=== PATIENT | female | born 1975 | race Two or more races ===

== ENCOUNTER 2022-02-17 12:28 | Inpatient (IN) | payer OTHER ==
[~2022-02-17] VITALS: Ht 152.4 cm; Wt 90.7 kg
--- NOTE | 2022-02-17 13:13 | NUR ---
PTE TRASLADA DE OTRA INTITUCION EL CUAL REFIERE CELULITIS EN LA RODILLA DERECHA PTE SE OBSERVA BAJANDO 0.9NSS Y VANCO 1GM SE PRESENTA PTE AL DR BARTON.
--- NOTE | 2022-02-17 13:50 | NUR ---
PTE CONSULTADO EN ESPERA DEL DR HECK
--- NOTE | 2022-02-17 14:26 | NUR ---
SE LE ORIENTA A PACIENTE SOBRE LAS ORDENES MEDICAS, REFIERE ENTEDER LAS MISMAS. SE LE ALEA LAS MUETRAS Y SE LE REALIZA LA PLACA DEMETRICE LAS ORDENES MEDICAS.
[2022-02-19] MEDS ORDERED: ALPRAZOLAM XR2 MG PO ×2 (13:28→13:31)
[2022-02-19] MEDS ORDERED: QUETIAPINE FUM100 MG PO (13:29)
[2022-02-19] MEDS ORDERED: RESTORIL30 MG PO (13:30)
== END 2022-02-24 15:34 | disposition home or self-care (01) | DRG 549 ==
LOC: ER 12:28 → SEC-K 17:50 → SURH 17:50
PROVIDERS: Orthopaedic Surgery; ADMIT Internal Medicine; ATTEND Internal Medicine
PROC: 30233N1 Transfusion of Nonautologous Red Blood Cells into Peripheral Vein, Percutaneous Approach (ICD-10-PCS; 2022-02-18)
PROC: 3E1U38Z Irrigation of Joints using Irrigating Substance, Percutaneous Approach (ICD-10-PCS; 2022-02-19)
PROC: BQ3FYZZ Magnetic Resonance Imaging (MRI) of Left Lower Leg using Other Contrast (ICD-10-PCS; 2022-02-19)
PROC: 0HDLXZZ Extraction of Left Lower Leg Skin, External Approach (ICD-10-PCS; principal; 2022-02-19 07:00)
PROC: BQ3FYZZ Magnetic Resonance Imaging (MRI) of Left Lower Leg using Other Contrast (ICD-10-PCS; 2022-02-20)
PROC: BQ3FYZZ Magnetic Resonance Imaging (MRI) of Left Lower Leg using Other Contrast (ICD-10-PCS; 2022-02-21)
DX: M00.862 Arthritis due to other bacteria, left knee (principal); M86.162 Other acute osteomyelitis, left tibia and fibula; E87.6 Hypokalemia; D64.9 Anemia, unspecified; D50.0 Iron deficiency anemia secondary to blood loss (chronic); J45.909 Unspecified asthma, uncomplicated; N80.8 Other endometriosis; F32.A Depression, unspecified; Z20.822 Contact with and (suspected) exposure to COVID-19
CPT/HCPCS: 73720; 73723

== ENCOUNTER 2022-03-08 12:49 | Emergency (ER) | payer OTHER ==
[~2022-03-08] VITALS: Ht 160 cm; Wt 65.8 kg
[~2022-03-08 12:49] MED LIST: ALPRAZOLAM XR2 MG PO; QUETIAPINE FUM100 MG PO; RESTORIL30 MG PO
== END 2022-03-08 16:37 | disposition home or self-care (01) ==
LOC: ER 12:49
DX: M25.561 Pain in right knee (principal); Z91.013 Allergy to seafood; I87.2 Venous insufficiency (chronic) (peripheral)